=== PATIENT | male | born 1935 | race Caucasian/White ===

== ENCOUNTER 2022-10-17 12:57 | Inpatient (IN) | payer MEDICARE, BC ==
[~2022-10-17] VITALS: Ht 180.3 cm; Wt 86.5 kg
[~2022-10-17 12:57] MED LIST: ASPIRIN 81M81 MG/TA2 PO; CORICIDIN COUGH1 TAB PO; FLOMAX 0.40.4 MG/CAP PO; ICAPS AREDS SO1 EACH PO; OMEGA-3 FISH1000 MG PO; ZOCOR 20MG20 MG PO
[2022-10-17 13:41] LABS: INR 1.2 (0.8-3.0); PROTHROMBIN TIME 13.2 SECONDS (9.7-12.8)
[2022-10-17 13:46] LABS: ALBUMIN 3.7 gm/dL (3.4-4.8); BILIRUBIN,TOTAL 0.9 mg/dL (0.2-1.2); CALCIUM 9.2 mg/dL (8.4-10.2); CREATININE, serum 2.62 mg/dL (0.72-1.25); POTASSIUM 4.5 mmol/L (3.5-4.5); TOTAL PROTEIN 6.9 gm/dL (6.2-8.1)
[2022-10-17 13:49] LABS: BASO % 0.6 % (0.0-2.0); EOS # 0.1 K/mm3 (0.0-0.7); EOS % 1.6 % (0.0-4.0); GRAN # 3.6 K/mm3 (1.4-6.5); GRAN % 72.2 % (42.2-75.2); HEMATOCRIT 42.3 % (42.0-52.0); HEMOGLOBIN 12.8 g/dl (13.5-18.0); LYMPH # 0.7 K/mm3 (1.2-3.4); LYMPH % 13.2 % (20.0-51.0); MEAN CELL VOLUME 96 fl (80.0-100.0); MEAN CORPUSCULAR HEMOGLOBIN 29 pg (27-31); MEAN CORPUSCULAR HGB CONC 30 g/dl (33.0-37.0); MEAN PLATELET VOLUME 12.3 fl (7.4-10.4); MONO # 0.6 K/mm3 (0.1-0.6); MONO % 12.2 % (1.7-9.3); PLATELET COUNT 105 K/mm3 (130-400); RED BLOOD COUNT 4.43 M/mm3 (4.20-5.60); REDCELL DISTRIBUTION WIDTH-CV 16.9 % (11.5-14.5)
[2022-10-17 13:53] LABS: TROPONIN-I 0.164 ng/mL (0.00-0.033)
[2022-10-17 14:33] LABS: ARTERIAL BLD GAS O2 SATURATION 98.3 % (92-100); ARTERIAL BLD GAS TCO2 CT 30.4; ARTERIAL BLOOD GAS BASE EXCESS 0.1 (-2-2); ARTERIAL BLOOD GAS HCO3 28.5 meq/L (22-26); ARTERIAL BLOOD GAS PCO2 63.9 mmHg (35-45); ARTERIAL BLOOD GAS PO2 115.4 mmHg (80-100); ARTERIAL BLOOD GAS pH 7.27 (7.35-7.45)
[2022-10-17] MEDS ORDERED: FLOMAX 0.40.4 MG/CAP PO (15:06)
[2022-10-17] MEDS ORDERED: PLAVIX 75MG TAB75 MG PO (15:06)
[2022-10-17] MEDS ORDERED: FLONASEALLERGY NAS (15:06)
[2022-10-17] MEDS ORDERED: PROTONIX 40MG T40 MG PO (15:06)
[2022-10-17] MEDS ORDERED: PROAIR HFA0.09 MG/AC IH (15:07)
[2022-10-17] MEDS ORDERED: OMEGA-3 1000 MG1 CAP PO (15:07)
--- NOTE | 2022-10-17 15:48 | NUR ---
Pt in medical unit, room 309.
--- NOTE | 2022-10-17 17:00 | NUR ---
Pt A&O x4. and son at bedside during admission intake. Pt is hard of hearing. Pt with RFA INT CDI. O2 sat at 89% and was placed on 1L of O2 per NC. Pt is on tele. Denies any pain or discomfort. Only question expressed is if he needs to be on O2 for a long period of time. Belongings and call light within reach.
[2022-10-17 19:22] VITALS: BP 127/73; PULSE 72; TEMP 97.5
[2022-10-17] MEDS ORDERED: TYLENOL 325MG325 MG PO (19:38)
[2022-10-17] MEDS ORDERED: PRESERVISION1 SGL PO (19:44)
--- NOTE | 2022-10-17 20:30 | NUR ---
Initial shift assessment done- resting quietly-states he is 'Fine", denies pain/SOB, o2 at 1L/nc, sats 91%. RLE edema. Tele on-paced, alert/oriented- very [place], call light in reach- bed alarm on--will call for assistance to bathroom.
[2022-10-17 23:03] VITALS: BP 139/81; PULSE 80; TEMP 97.5
--- NOTE | 2022-10-18 00:22 | NUR ---
Did see order for [facility] cathter- talked with patient, he said we could try at this time- has BPH, did attemp to place cather coude and was unsuccesful and pt states he does not want it-- did then stand pt at side of bed- voided 100cc ashli urine- bladder scan showed only 20cc left in bladder- Talked with Deepa AGEE and she is ok with not attempting again-
[2022-10-18 03:18] VITALS: BP 122/66; PULSE 67; TEMP 98.5
[2022-10-18 04:27] LABS: COLLECTION METHOD CLEAN CATCH; URINE APPEARANCE Turbid (CLEAR/HAZY); URINE COLOR Yellow (YELLOW); URINE GLUCOSE Negative (NEGATIVE); URINE KETONE Negative (NEGATIVE); URINE PROTEIN(semi-quant) 2+ (NEGATIVE); URINE UROBILINOGEN 0.2 E.U/dL (0.2-1.0)
[2022-10-18 04:28] LABS: URINE BLOOD 3+ (NEGATIVE); URINE NITRATE Negative (NEGATIVE)
[2022-10-18 04:35] LABS: MUCOUS Present (NOT PRESENT); SQUAMOUS EPITHELIAL 0-2 /hpf (0-10); URINE BACTERIA Rare /hpf (NONE SEEN); URINE RBC >50 /hpf (0-2)
--- NOTE | 2022-10-18 05:53 | NUR ---
Did not get much sleep during the night- o2 at 2L/nc,sats 95%. Did call Deepa AGEE regarding urine lab results, no new orders at this time,
[2022-10-18 06:38] LABS: HEMATOCRIT 39.9 % (42.0-52.0); HEMOGLOBIN 12.2 g/dl (13.5-18.0); MEAN CELL VOLUME 95 fl (80.0-100.0); MEAN CORPUSCULAR HEMOGLOBIN 29 pg (27-31); MEAN CORPUSCULAR HGB CONC 31 g/dl (33.0-37.0); MEAN PLATELET VOLUME 11.6 fl (7.4-10.4); PLATELET COUNT 86 K/mm3 (130-400); REDCELL DISTRIBUTION WIDTH-CV 16.9 % (11.5-14.5)
[2022-10-18 06:56] LABS: ALBUMIN 3.2 gm/dL (3.4-4.8); CALCIUM 8.8 mg/dL (8.4-10.2); CREATININE, serum 2.69 mg/dL (0.72-1.25); MAGNESIUM 2.1 mg/dL (1.6-2.6); PHOSPHOROUS 4.3 mg/dL (2.3-4.7); POTASSIUM 5.4 mmol/L (3.5-4.5)
[2022-10-18 07:28] VITALS: BP 112/66; PULSE 53; TEMP 98.8
[2022-10-18 07:29] LABS: BAND 1 % (0-10); LYMPHOCYTE 4 % (20.0-51.0); MYELOCYTE 1 % (0-0); NEUTROPHILS 92 % (42.0-75.2)
[2022-10-18 07:30] LABS: ANISOCYTOSIS 1+; PLATELET ESTIMATE DECREASED (NORMAL)
[2022-10-18 07:31] LABS: HYPOCHROMIA 2+
[2022-10-18 08:11] LABS: TROPONIN-I 0.125 ng/mL (0.00-0.033)
--- NOTE | 2022-10-18 10:11 | NUR ---
Initial visit; Patient thanked Nuclear Logging Engineer for coming in and offering prayer this morning. Bob talked about his latter day and how his family loved his latter day. Nuclear Logging Engineer wished Bob rapid and thorough recovery.
[2022-10-18 12:18] VITALS: BP 138/70; PULSE 67; TEMP 97.5
[2022-10-18 12:19] LABS: PLEURAL FLUID RBC 0 /mm3 (0-0); PLEURAL FLUID WBC 111 /mm3
[2022-10-18 12:20] LABS: ARTERIAL BLOOD GAS HCO3 23.4 meq/L (22-26); ARTERIAL BLOOD GAS PCO2 47.4 mmHg (35-45); ARTERIAL BLOOD GAS PO2 65.4 mmHg (80-100); ARTERIAL BLOOD GAS pH 7.31 (7.35-7.45)
[2022-10-18 12:21] LABS: ARTERIAL BLD GAS O2 SATURATION 92.9 % (92-100); ARTERIAL BLOOD GAS BASE EXCESS -3.1 (-2-2)
[2022-10-18 12:22] LABS: PLEURAL FLUID APPEARANCE CLEAR; PLEURAL FLUID COLOR YELLOW
--- NOTE | 2022-10-18 15:15 | NUR ---
Patient scheduled telehealth visit with Dr. Jernigan, [facility] Nurse. Pt consents to visit. PT is extremely hard of hearing. Equipment set up, audio and video connections established. Visit conducted by . No technical concerns or issues.
[2022-10-18 15:33] VITALS: BP 114/62; PULSE 64
[2022-10-18 19:20] VITALS: BP 114/67; PULSE 64; TEMP 98.1
[2022-10-18 23:46] VITALS: BP 124/69; PULSE 79; TEMP 98
[2022-10-19 04:07] VITALS: BP 112/70; PULSE 66; TEMP 98.2
[2022-10-19 06:17] LABS: HEMOGLOBIN 11.6 g/dl (13.5-18.0); MEAN CELL VOLUME 95 fl (80.0-100.0); MEAN CORPUSCULAR HEMOGLOBIN 29 pg (27-31); MEAN CORPUSCULAR HGB CONC 31 g/dl (33.0-37.0); PLATELET COUNT 105 K/mm3 (130-400); RED BLOOD COUNT 4.01 M/mm3 (4.20-5.60)
[2022-10-19 06:36] LABS: ALBUMIN 3.2 gm/dL (3.4-4.8); CALCIUM 8.8 mg/dL (8.4-10.2); CREATININE, serum 2.85 mg/dL (0.72-1.25); PHOSPHOROUS 4.3 mg/dL (2.3-4.7); POTASSIUM 5.1 mmol/L (3.5-4.5)
[2022-10-19 07:09] VITALS: BP 118/65; PULSE 66; TEMP 97.6
[2022-10-19 07:21] LABS: BAND 1 % (0-10); LYMPHOCYTE 4 % (20.0-51.0); NEUTROPHILS 94 % (42.0-75.2); PLATELET ESTIMATE DECREASED (NORMAL)
[2022-10-19 07:22] LABS: ANISOCYTOSIS 1+; HYPOCHROMIA 2+
[2022-10-19 07:23] LABS: OVALOCYTES 1+; TARGET CELLS 1+
--- NOTE | 2022-10-19 10:39 | NUR ---
SW met wit pt to complete intake. 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 He reports he independnent on all ADLS and does use a cane and FWW. His PCP is Geoffrey Cullen MD and gets medications from [facility]. Pt reports his DPOA-HC is his and has a WILL and no services in that area. No other needs at this time. SW to await for further recommendations and follow up as needed. DC: Home with family support, pending PT/OT eval.
--- NOTE | 2022-10-19 11:30 | NUR ---
Assessment complete. A/O x4. Pt very [place]- wearing bilateral hearing aides. O2 3L/NC. Pt has dyspnea at rest. Respirations labored with any type of exertion, including talking. Pt SpO2 dropped to 87% with bedside physical therapy this morning on 3L/NC. Did not adjust O2- SpO2 increased to 90% with rest. Current respiration 20 per minute. Productive cough of a large amount of clear thick sputum. Pt instructed on need for sputum sample- sputum collection cup placed at bedside- verbalizes understanding. LS diminished with expiratory wheezing noted. Tele A paced. INT to RW flushes without s/s complications. No BLE noted at time of assessment. Redness to left great/2nd/3rd/4th toe noted. Small abrasion noted on 2nd/4th toe- pt reports bumping it on walker. 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 Rt hip with healing scab. Skin overall dry. SCD's in place bilaterally.
[2022-10-19 11:39] VITALS: BP 110/84; PULSE 64; TEMP 97.3
--- NOTE | 2022-10-19 13:01 | NUR ---
Sputum specimen collected and taken to the lab.
[2022-10-19 15:12] VITALS: BP 104/84; PULSE 60; TEMP 97.5
--- NOTE | 2022-10-19 18:35 | NUR ---
Pt continues to wear oxygen at 3L/NC- SpO2 ranges from 90-94%. No change in respiratory status- continues to have dyspnea at rest and with minimal activity. Uses urinal for voiding. Placed an air mattress overlay and implemented a q 2 hour turn schedule. Denies pain or needs at this time.
[2022-10-19 19:54] VITALS: BP 112/71; PULSE 59; TEMP 97.5
[2022-10-19 23:16] VITALS: BP 131/76; PULSE 64; TEMP 97.6
[2022-10-20 03:36] VITALS: BP 146/87; PULSE 81; TEMP 98.1
[2022-10-20 06:24] LABS: HEMATOCRIT 40.1 % (42.0-52.0); HEMOGLOBIN 12.2 g/dl (13.5-18.0); MEAN CELL VOLUME 95 fl (80.0-100.0); MEAN CORPUSCULAR HEMOGLOBIN 29 pg (27-31); MEAN CORPUSCULAR HGB CONC 30 g/dl (33.0-37.0); MEAN PLATELET VOLUME 12.3 fl (7.4-10.4); PLATELET COUNT 100 K/mm3 (130-400); RED BLOOD COUNT 4.23 M/mm3 (4.20-5.60); REDCELL DISTRIBUTION WIDTH-CV 17.2 % (11.5-14.5)
[2022-10-20 06:39] LABS: ALBUMIN 3.1 gm/dL (3.4-4.8); CALCIUM 8.8 mg/dL (8.4-10.2); CREATININE, serum 3.08 mg/dL (0.72-1.25); MAGNESIUM 2.1 mg/dL (1.6-2.6); PHOSPHOROUS 4.2 mg/dL (2.3-4.7); POTASSIUM 4.8 mmol/L (3.5-4.5)
[2022-10-20 06:54] LABS: ANISOCYTOSIS 1+; BAND 4 % (0-10); HYPOCHROMIA 2+; LYMPHOCYTE 1 % (20.0-51.0); NEUTROPHILS 90 % (42.0-75.2); PLATELET ESTIMATE DECREASED (NORMAL)
[2022-10-20 06:58] LABS: OVALOCYTES 1+; TARGET CELLS 1+
[2022-10-20 07:29] VITALS: BP 116/74; PULSE 66; TEMP 98.7
--- NOTE | 2022-10-20 07:42 | NUR ---
Assessment complete. A/O x4. O2 2L/NC. SpO2 94%. Pt still has dyspnea with talking/exertion but reports he feels improved from yesterday. Pt to BSC x1 assist- voided and had a very small bowel movement. Pt now sitting up in chair. Denies pain or needs at this time.
--- NOTE | 2022-10-20 08:53 | NUR ---
NS infusion started at 75ml/hr-order for one 500ml bag.
[2022-10-20 12:24] VITALS: BP 132/77; PULSE 65; TEMP 97.4
--- NOTE | 2022-10-20 15:42 | NUR ---
NS infusion completed. Pt resting in bed with eye closed, respirations even and unlabored. Denies pain or needs at this time.
[2022-10-20 15:53] VITALS: BP 131/81; PULSE 66; TEMP 98.3
--- NOTE | 2022-10-20 17:23 | NUR ---
Dr. Rodriguez paged- still no response from earlier page.
--- NOTE | 2022-10-20 19:00 | NUR ---
Pt resting in bed. Denies pain. Pt respiratory status improved from yesterday. SpO2 in the 90% range on 3L/NC. Still has dyspnea with exertion. Sat up in chair this am and tolerted well. Completed bedside physical therapy.
[2022-10-20 20:43] VITALS: BP 122/73; PULSE 63; TEMP 97.7
[2022-10-20 23:58] VITALS: BP 112/75; PULSE 67; TEMP 98.1
[2022-10-21 04:08] VITALS: BP 140/80; PULSE 59; TEMP 97.8
[2022-10-21 07:04] LABS: BASO % 0.1 % (0.0-2.0); GRAN # 9.3 K/mm3 (1.4-6.5); HEMATOCRIT 41.2 % (42.0-52.0); HEMOGLOBIN 12.7 g/dl (13.5-18.0); LYMPH # 0.2 K/mm3 (1.2-3.4); LYMPH % 2.3 % (20.0-51.0); MEAN CELL VOLUME 95 fl (80.0-100.0); MEAN CORPUSCULAR HEMOGLOBIN 29 pg (27-31); MEAN CORPUSCULAR HGB CONC 31 g/dl (33.0-37.0); MEAN PLATELET VOLUME 12.6 fl (7.4-10.4); MONO # 0.7 K/mm3 (0.1-0.6); MONO % 6.9 % (1.7-9.3); PLATELET COUNT 87 K/mm3 (130-400); RED BLOOD COUNT 4.35 M/mm3 (4.20-5.60); REDCELL DISTRIBUTION WIDTH-CV 17.1 % (11.5-14.5)
[2022-10-21 07:18] LABS: ALBUMIN 3.1 gm/dL (3.4-4.8); CALCIUM 8.8 mg/dL (8.4-10.2); CREATININE, serum 2.99 mg/dL (0.72-1.25); PHOSPHOROUS 3.6 mg/dL (2.3-4.7); POTASSIUM 4.8 mmol/L (3.5-4.5)
[2022-10-21 07:46] VITALS: BP 145/80; PULSE 60; TEMP 97.7
[2022-10-21] MEDS ORDERED: INCRUSE EL62.5 MCG/A IH (10:19)
[2022-10-21] MEDS ORDERED: DOXYCYCLINE 10100 MG PO (10:21)
[2022-10-21] MEDS ORDERED: ASPIRIN 81M81 MG/TA2 PO ×2 (10:30→10:37)
[2022-10-21] MEDS ORDERED: RT ADVAIR 228 DISKUS IH (10:35)
[2022-10-21] MEDS ORDERED: PREDNISONE20 MG PO (10:35)
--- NOTE | 2022-10-21 10:45 | NUR ---
SHIFT ASSESSMENT COMPLETED AND MORNING MEDICATIONS ADMINISTERED PER ORDER. PATIENT IS ALERT AND ORIENTED. DENIES PAIN. SOB WITH EXERTION. O2 AT REST AFTER TALKING NOTED TO BE 87% ON 3L, PATIENT INCREASED TO 4L. DR. VALENTIN AWARE OF INCREASED O2 NEED TO 4L. PLAN IS FOR PATIENT TO DISCHARGE TODAY. DENIES NEEDS AT THIS TIME. CALL LIGHT WITHIN REACH.
[2022-10-21] MEDS ORDERED: OXYGEN (11:32)
[2022-10-21 12:04] VITALS: BP 142/73; PULSE 62; TEMP 97.5
--- NOTE | 2022-10-21 12:15 | NUR ---
SW met with patient about going home with [facility] and new home oxygen order. Patient verbalizes that he would like to be established with [facility] and a DME company in [place] for his O2. Phone call made to [facility] who states that they have not had this patient since 2019. Patients clinical referral and dc orders faxed to [facility]. Phone call made to [facility] in who states that they will deliver to [place] but will not deliver a tank to the hospital for transport. Phone call made to [facility] who states that they do deliver to [facility] and will be able to bring the patient a tank later this afternoon. Patients DME order faxed to [facility]. Discharge plan: home with [facility] and new home oxygen set up.
--- NOTE | 2022-10-21 12:50 | NUR ---
FAMILY AT BEDSIDE WITH CONCERNS REGARDING PATIENT'S DISCHARGE. DION GARCIA UPDATED REGARDING FAMILY CONCERNS AND PATIENT'S SHORTNESS OF BREATH, RADHA VISITING WITH FAMILY NOW.
--- NOTE | 2022-10-21 14:44 | NUR ---
Follow-up visit; Patient teasing, seems to be better. Ross Lift Operator visited with him, his and his son. Bob may be going home soon according to his . Ross Lift Operator will keep Bob in her prayers.
[2022-10-21 15:36] VITALS: BP 156/90; PULSE 64; TEMP 97.4
--- NOTE | 2022-10-21 18:41 | NUR ---
PATIENT IN BED AT THIS TIME, DENIES ANY NEEDS OR PAIN. PENDING DISCHARGE TOMORROW. PER SW, O2 WILL BE DELIVERED TOMORROW. FAMILY UPDATED. DENIES AND FURTHER QUESTIONS. CALL LIGHT WITHIN REACH.
[2022-10-21 20:05] VITALS: BP 151/81; PULSE 65; TEMP 98.1
[2022-10-22 00:47] VITALS: BP 146/87; PULSE 93; TEMP 97.5
[2022-10-22 04:00] VITALS: BP 151/86; PULSE 80; TEMP 97.6
--- NOTE | 2022-10-22 05:53 | NUR ---
OVERNIGHT PATIENTS VITAL SIGNS REMAINED WITHIN NORMAL LIMITS, PT DENIED PAIN. PTS BREATHING GETS LABORED WHEN PT IS ACTIVE. PTS LUNG SOUNDS WET AND COARSE PT OFTEN COUGHING. PT ABLE TO AMBULATE WITH STAND BY ASSISTANCE AND A WALKER TO THE RESTROOM OVERNIGHT. PTS GAIT STEADY.
[2022-10-22 06:49] LABS: HEMATOCRIT 41.6 % (42.0-52.0); HEMOGLOBIN 13.1 g/dl (13.5-18.0); MEAN CELL VOLUME 92 fl (80.0-100.0); MEAN CORPUSCULAR HEMOGLOBIN 29 pg (27-31); MEAN CORPUSCULAR HGB CONC 32 g/dl (33.0-37.0); PLATELET COUNT 94 K/mm3 (130-400); REDCELL DISTRIBUTION WIDTH-CV 17.2 % (11.5-14.5)
[2022-10-22 06:53] LABS: ALBUMIN 3.3 gm/dL (3.4-4.8); CALCIUM 8.7 mg/dL (8.4-10.2); CREATININE, serum 2.69 mg/dL (0.72-1.25); PHOSPHOROUS 4.5 mg/dL (2.3-4.7)
[2022-10-22 07:23] LABS: ANISOCYTOSIS 1+; BAND 1 % (0-10); HYPOCHROMIA 2+; LYMPHOCYTE 1 % (20.0-51.0); METAMYELOCYTE 1 % (0-0); NEUTROPHILS 94 % (42.0-75.2); PLATELET ESTIMATE DECREASED (NORMAL)
[2022-10-22 07:25] VITALS: BP 147/97; PULSE 73; TEMP 97.5
[2022-10-22 11:25] VITALS: BP 140/83; PULSE 63
--- NOTE | 2022-10-22 13:47 | NUR ---
Online Marketing Director collaborated with [facility] for patient's oxygen set up. Patient's equipment was set up in the home per , Taylor's request as she has been having transportation issues. SW met with patient while his , Taylor was on speakerphone. SW reviewed IM form with patient and both he and his verbalized understanding. Patient provided signature on form. SW placed form in chart and provided copy to patient. KEVON contacted Cintia at [facility] and faxed discharge orders.
--- NOTE | 2022-10-22 16:00 | NUR ---
PER PATIENTS , OXYGEN COMPANY BROUGHT EMPTY TANK, HOWEVER BROUGHT BACK A REPLACEMENT TANK.
--- NOTE | 2022-10-22 16:30 | NUR ---
PATIENT GIVEN DISCHARGE INSTRUCTIONS AND EDUCATTION WITH PRESENT. NEW MEDICATIONS AND APTS REVIEWED. ALL QUESTIONS ANSERED. PATIENT IS AWAITIGN A RIDE.
--- NOTE | 2022-10-22 16:35 | NUR ---
IV AND TELE DISCONTINUED
--- NOTE | 2022-10-22 17:58 | NUR ---
PATIENT WAS BROUGHT HOME OXYGEN TANK, TANK IS EMPTY. [facility] CONTACTED AND ARE TO HAVE THEIR WATCHGUARD EMPLOYEE CALL BACK. MEDICAL UNIT NUMBER GIVEN FOR CALL BACK.
--- NOTE | 2022-10-22 18:25 | NUR ---
PER [facility] PATIENTS OXYGEN TANK DROPPPED OFF, TANK FULL.
--- NOTE | 2022-10-22 18:36 | NUR ---
PATIENT TAKEN TO ER ENTRANCE VIA WHEEL [facility]IAR WITH HIS OWN PORTABLE OXYGEN TANK, WITH PCT. PATIENT LEFT IN STABLE CONDITION WITH HIS , WHOM WERE PICKED UP BY FRIENDS.
== END 2022-10-22 18:37 | disposition home health service (06) | DRG 871 ==
LOC: COL.ER 12:57 → MEDICAL 13:59
PROVIDERS: Family Medicine; Physician Assistant; ADMIT Internal Medicine
PROC: 0W993ZX Drainage of Right Pleural Cavity, Percutaneous Approach, Diagnostic (ICD-10-PCS; principal; 2022-10-18)
DX: A41.9 Sepsis, unspecified organism (principal); I21.A1 Myocardial infarction type 2; J96.02 Acute respiratory failure with hypercapnia; J18.9 Pneumonia, unspecified organism; J96.01 Acute respiratory failure with hypoxia; I48.92 Unspecified atrial flutter; N17.9 Acute kidney failure, unspecified; J90 Pleural effusion, not elsewhere classified; J44.1 Chronic obstructive pulmonary disease with (acute) exacerbation; N39.0 Urinary tract infection, site not specified; N18.4 Chronic kidney disease, stage 4 (severe); Z66 Do not resuscitate; Z20.822 Contact with and (suspected) exposure to COVID-19; I48.91 Unspecified atrial fibrillation; D64.9 Anemia, unspecified; K21.9 Gastro-esophageal reflux disease without esophagitis; E78.5 Hyperlipidemia, unspecified; I07.1 Rheumatic tricuspid insufficiency; D69.6 Thrombocytopenia, unspecified; N40.0 Benign prostatic hyperplasia without lower urinary tract symptoms; E87.5 Hyperkalemia; I73.9 Peripheral vascular disease, unspecified; Z90.89 Acquired absence of other organs; Z95.4 Presence of other heart-valve replacement; Z87.891 Personal history of nicotine dependence; Z90.49 Acquired absence of other specified parts of digestive tract; Z85.828 Personal history of other malignant neoplasm of skin; Z95.0 Presence of cardiac pacemaker; Z79.82 Long term (current) use of aspirin; Z23 Encounter for immunization
CPT/HCPCS: A9270; A9540; A9567; J0696; J1644; J2543; J2920; J2930; J7030; J7040; J7512

== ENCOUNTER 2022-10-22 20:45 | Inpatient (IN) | payer MEDICARE, BC ==
[~2022-10-22] VITALS: Ht 180.3 cm; Wt 78.1 kg
[~2022-10-22 20:45] MED LIST changes: +DOXYCYCLINE 10100 MG PO; +FLONASEALLERGY NAS; +INCRUSE EL62.5 MCG/A IH; +OMEGA-3 1000 MG1 CAP PO; +OXYGEN; +PLAVIX 75MG TAB75 MG PO; +PREDNISONE20 MG PO; +PRESERVISION1 SGL PO; +PROAIR HFA0.09 MG/AC IH; +PROTONIX 40MG T40 MG PO; +RT ADVAIR 228 DISKUS IH; +TYLENOL 325MG325 MG PO
[2022-10-22 21:47] LABS: ARTERIAL BLD GAS O2 SATURATION 94.2 % (92-100); ARTERIAL BLOOD GAS BASE EXCESS 0.1 (-2-2); ARTERIAL BLOOD GAS PO2 73.1 mmHg (80-100); ARTERIAL BLOOD GAS pH 7.26 (7.35-7.45)
[2022-10-22 21:48] LABS: ARTERIAL BLOOD GAS PCO2 66.8 mmHg (35-45)
[2022-10-22 22:05] LABS: HEMATOCRIT 43.1 % (42.0-52.0); HEMOGLOBIN 13.3 g/dl (13.5-18.0); MEAN CELL VOLUME 95 fl (80.0-100.0); MEAN CORPUSCULAR HEMOGLOBIN 29 pg (27-31); MEAN CORPUSCULAR HGB CONC 31 g/dl (33.0-37.0); MEAN PLATELET VOLUME 13.2 fl (7.4-10.4); PLATELET COUNT 84 K/mm3 (130-400); RED BLOOD COUNT 4.53 M/mm3 (4.20-5.60); REDCELL DISTRIBUTION WIDTH-CV 17.2 % (11.5-14.5)
[2022-10-22 22:08] LABS: INR 1.2 (0.8-3.0); PROTHROMBIN TIME 13.2 SECONDS (9.7-12.8)
[2022-10-22 22:21] LABS: ALBUMIN 3.5 gm/dL (3.4-4.8); BILIRUBIN,TOTAL 0.7 mg/dL (0.2-1.2); CALCIUM 8.7 mg/dL (8.4-10.2); CREATININE, serum 2.72 mg/dL (0.72-1.25); POTASSIUM 5.6 mmol/L (3.5-4.5); TOTAL PROTEIN 6.7 gm/dL (6.2-8.1)
[2022-10-22 22:31] LABS: TROPONIN-I 0.252 ng/mL (0.00-0.033)
[2022-10-22 22:38] LABS: BAND 1 % (0-10); HYPOCHROMIA 3+; LYMPHOCYTE 3 % (20.0-51.0); NEUTROPHILS 92 % (42.0-75.2); PLATELET ESTIMATE DECREASED (NORMAL); TARGET CELLS 1+
[2022-10-23 00:46] VITALS: BP 145/81; PULSE 81; TEMP 99.3
[2022-10-23 03:49] VITALS: BP 120/71; PULSE 77; TEMP 97.6
[2022-10-23 05:02] LABS: ARTERIAL BLD GAS O2 SATURATION 91.8 % (92-100); ARTERIAL BLD GAS TCO2 CT 27.4; ARTERIAL BLOOD GAS BASE EXCESS -1.2 (-2-2); ARTERIAL BLOOD GAS HCO3 25.8 meq/L (22-26); ARTERIAL BLOOD GAS PCO2 52.5 mmHg (35-45); ARTERIAL BLOOD GAS PO2 63.2 mmHg (80-100); ARTERIAL BLOOD GAS pH 7.31 (7.35-7.45)
[2022-10-23 05:09] LABS: HEMATOCRIT 40.1 % (42.0-52.0); HEMOGLOBIN 12.4 g/dl (13.5-18.0); MEAN CELL VOLUME 95 fl (80.0-100.0); MEAN CORPUSCULAR HEMOGLOBIN 29 pg (27-31); MEAN CORPUSCULAR HGB CONC 31 g/dl (33.0-37.0); MEAN PLATELET VOLUME 13.1 fl (7.4-10.4); PLATELET COUNT 88 K/mm3 (130-400); RED BLOOD COUNT 4.24 M/mm3 (4.20-5.60); REDCELL DISTRIBUTION WIDTH-CV 17.2 % (11.5-14.5)
[2022-10-23 05:24] LABS: CALCIUM 8.8 mg/dL (8.4-10.2); CREATININE, serum 2.54 mg/dL (0.72-1.25); MAGNESIUM 2.1 mg/dL (1.6-2.6); POTASSIUM 5.2 mmol/L (3.5-4.5)
[2022-10-23 05:33] LABS: ANISOCYTOSIS 1+; BAND 5 % (0-10); HYPOCHROMIA 3+; LYMPHOCYTE 4 % (20.0-51.0); NEUTROPHILS 83 % (42.0-75.2); PLATELET ESTIMATE NORMAL (NORMAL); TARGET CELLS 1+
[2022-10-23 05:59] LABS: TROPONIN-I 6 HR POST INITIAL 0.291 ng/mL (0.00-0.033)
[2022-10-23 07:46] VITALS: BP 139/77; PULSE 70; TEMP 97.8
[2022-10-23 11:24] VITALS: BP 129/81; PULSE 63; TEMP 98.3
[2022-10-23 13:37] LABS: PLEURAL FLUID RBC 14000 /mm3 (0-0); PLEURAL FLUID WBC 135 /mm3
[2022-10-23 13:45] LABS: PLEURAL FLUID APPEARANCE HAZY; PLEURAL FLUID COLOR PINK
[2022-10-23 22:26] LABS: BODY FLUID PH (AMS) 8 (())
== END 2022-10-24 07:37 | disposition expired | DRG 193 ==
LOC: COL.ER 20:45 → MEDICAL 22:10
PROVIDERS: Family Medicine; Internal Medicine; Personal Emergency Response Attendant; Student in an Organized Health Care Education/Training Program; ADMIT Student in an Organized Health Care Education/Training Program
PROC: 5A09357 Assistance with Respiratory Ventilation, Less than 24 Consecutive Hours, Continuous Positive Airway Pressure (ICD-10-PCS; principal; 2022-10-23)
PROC: 0W993ZX Drainage of Right Pleural Cavity, Percutaneous Approach, Diagnostic (ICD-10-PCS; 2022-10-23)
DX: J18.9 Pneumonia, unspecified organism (principal); I21.A1 Myocardial infarction type 2; J96.21 Acute and chronic respiratory failure with hypoxia; J96.22 Acute and chronic respiratory failure with hypercapnia; J90 Pleural effusion, not elsewhere classified; J44.1 Chronic obstructive pulmonary disease with (acute) exacerbation; I48.92 Unspecified atrial flutter; N18.4 Chronic kidney disease, stage 4 (severe); N17.9 Acute kidney failure, unspecified; J44.0 Chronic obstructive pulmonary disease with (acute) lower respiratory infection; Z66 Do not resuscitate; I48.91 Unspecified atrial fibrillation; E87.5 Hyperkalemia; D69.6 Thrombocytopenia, unspecified; D64.9 Anemia, unspecified; N40.0 Benign prostatic hyperplasia without lower urinary tract symptoms; K21.9 Gastro-esophageal reflux disease without esophagitis; E78.5 Hyperlipidemia, unspecified; I46.8 Cardiac arrest due to other underlying condition; I73.9 Peripheral vascular disease, unspecified; Z20.822 Contact with and (suspected) exposure to COVID-19; I12.9 Hypertensive chronic kidney disease with stage 1 through stage 4 chronic kidney disease, or unspecified chronic kidney disease; E87.70 Fluid overload, unspecified; Z90.89 Acquired absence of other organs; Z23 Encounter for immunization; Z95.4 Presence of other heart-valve replacement; Z95.0 Presence of cardiac pacemaker; Z90.49 Acquired absence of other specified parts of digestive tract; Z79.82 Long term (current) use of aspirin; Z99.81 Dependence on supplemental oxygen; Z87.891 Personal history of nicotine dependence; Z85.828 Personal history of other malignant neoplasm of skin
CPT/HCPCS: A9270; J1815; J1940; J2270; J2920